=== PATIENT | female | born 1980 | race Caucasian/White ===

== ENCOUNTER 2019-06-24 06:28 | Emergency (ER) | payer BC ==
[~2019-06-24] VITALS: Ht 167.6 cm; Wt 59.0 kg
[~2019-06-24 06:28] MED LIST: CAL MAG ZINC +1 EACH PO; CELEXA40 MG PO; CLARITIN10 MG PO; EXPECTA PRENAT1 EACH PO
--- OUTSIDE RECORDS SUMMARY | 2019-06-24 06:30 | XMS ---
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 Nara has no Care Guidelines for this patient. Juan VISIT COUNT (12 MO.) 1 [facility] Shankar TOTAL 1 NOTE: Visits indicate total known visits. ED/C VISIT TRACKING (12 MO.) 06/24/2019 06:29 [facility] TYPE: Emergency COMPLAINT: - HEADACHE INPATIENT VISIT TRACKING (12 MO.) No inpatient visits to display in this time frame [email or web address]
[2019-06-24] MEDS ORDERED: ADDERALL XR 2020 MG PO (06:39)
[2019-06-24] MEDS ORDERED: CITALOPRAM HBR40 MG PO (08:19)
[2019-06-24] MEDS ORDERED: ONDANSETRON ODT8 MG PO (08:19)
== END 2019-06-24 08:42 | disposition home or self-care (01) ==
LOC: ED 06:28
DX: R51 Headache (principal); F32.9 Major depressive disorder, single episode, unspecified; F41.9 Anxiety disorder, unspecified; Z88.2 Allergy status to sulfonamides; Z88.8 Allergy status to other drugs, medicaments and biological substances
CPT/HCPCS: 96361; 96374; 99283-25; J1200; J3030; J7030

== ENCOUNTER 2022-10-02 23:59 | Emergency (ER) | payer OTHER ==
[~2022-10-02] VITALS: Ht 167.6 cm; Wt 62.6 kg
[~2022-10-02 23:59] MED LIST changes: +ADDERALL XR 2020 MG PO; +CITALOPRAM HBR40 MG PO; +ONDANSETRON ODT8 MG PO
--- OUTSIDE RECORDS SUMMARY | 2022-10-03 00:02 | XMS ---
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 Juan VISIT COUNT (12 MO.) 1 [facility] TOTAL 1 NOTE: Visits indicate total known visits. ED/UCC VISIT TRACKING (12 MO.) 10/03/2022 00:01 [facility] TYPE: Emergency COMPLAINT: - MIGRAINE INPATIENT VISIT TRACKING (12 MO.) No inpatient visits to display in this time frame [email or web address]
[2022-10-03] MEDS ORDERED: AMPHETAMINE SAL10 MG PO (00:18)
[2022-10-03] MEDS ORDERED: SPIRONOLACTONE50 MG PO (00:19)
[2022-10-03] MEDS ORDERED: CYCLOBENZAPRINE10 MG PO (00:19)
[2022-10-03 00:46] VITALS: BP 118/86
== END 2022-10-03 00:47 | disposition home or self-care (01) ==
LOC: ED 23:59
DX: G43.909 Migraine, unspecified, not intractable, without status migrainosus (principal); Z88.2 Allergy status to sulfonamides; Z88.8 Allergy status to other drugs, medicaments and biological substances; Z79.899 Other long term (current) drug therapy
CPT/HCPCS: J3030; Q0163